=== PATIENT | male | born 1985 | race Two or more races ===

== ENCOUNTER 2019-06-05 21:38 | Emergency (ER) | payer OTHER ==
[~2019-06-05] VITALS: Ht 170.2 cm; Wt 72.6 kg
--- NOTE | 2019-06-05 21:50 | NUR ---
ED Nurse Note: PATIENT AMBULATED TO ED C/O WORKPLACE INJURY TO RIGHT THUMB X 2049. PATIENT STATES HE DROPPED AT KNIFE AT WORK AND SLICED HIS THUMB. Pt is AO x 4times, VSS, on room air no distress. TAWNYAD seen Pt at bedside.
[2019-06-05 22:14] VITALS: BP 125/72
[2019-06-05] MEDS ORDERED: Bacitracin Oint UD TOPIC ONE (22:33)
--- NOTE | 2019-06-05 22:33 | NUR ---
ED Nurse Note: Suture the wound by ERMD. Applied with meds and cover with dressing.
--- NOTE | 2019-06-05 22:38 | NUR ---
ER DISCHARGE NOTE: Patient is cleared to be discharged per ERMD, pt is aox4, on room air, with stable vital signs. pt was given dc and prescription instructions, pt was able to verbalize understanding, pt id band removed without complications. pt is able to ambulate with steady gait. pt took all belongings.
[2019-06-05] MEDS ORDERED: Bacitracin Oint 15gm Tube TOPIC ONE (22:45)
[2019-06-05 22:50] VITALS: BP 130/78
--- NOTE | 2019-06-06 01:10 | Emergency Room Report ---
History of Present Illness General Chief Complaint: Laceration Source: Patient Present Illness HPI 34-year-old male presents ED for evaluation. Status post laceration to right thumb. States that he dropped a knife at work and cut his right thumb. Denies any other injuries. Tetanus is up-to-date. Denies any pain. No other aggravating relieving factors. Denies any other associated symptoms Allergies: Coded Allergies: No Known Allergies (Unverified , 06/05/19) Patient History Past Medical History: none Past Surgical History: none Pertinent Family History: none Social History: Denies: smoking, alcohol use, drug use Immunizations: UTD Reviewed Nursing Documentation: PMH: Agreed; PSxH: Agreed Nursing Documentation-PMH Past Medical History: No Stated History Review of Systems All Other Systems: negative except mentioned in HPI Physical Exam Vital Signs Date Time Temp Pulse Resp B/P (MAP) Pulse Ox O2 Delivery O2 Flow Rate FiO2 06/05/19 21:41 98.1 88 14 114/72 (86) 94 Room Air Sp02 EP Interpretation: reviewed, normal General Appearance: no apparent distress, alert, GCS 15, non-toxic Head: normocephalic Eyes: bilateral eye normal inspection, bilateral eye PERRL ENT: normal ENT inspection Neck: normal inspection Respiratory: normal inspection Cardiovascular #1: normal inspection Gastrointestinal: normal inspection Rectal: deferred Genitourinary: no CVA tenderness Musculoskeletal: normal inspection Neurologic: alert, oriented x3, responsive, motor strength/tone normal, sensory intact, speech normal Psychiatric: normal inspection Skin: laceration - 2cm laceration to R thumb. no tendon or muscle involvement Lymphatic: normal inspection Procedures Laceration/Wound Repair Laceration/Wound Repair : Consent: Verbal Wound Location: upper extremity - R thumb Wound's Depth, Shape: linear Wound Explored: clean Betadine Prep?: Yes Anesthesia: 1% Lidocaine Wound Debrided: minimal Wound Repaired With: sutures Suture Size/Type: 5:0, proline Layer Closure?: No Sterile Dressing Applied?: Yes Splint Applied?: No Sling Applied?: No Patient Tolerated: Well Complications: None Medical Decision Making Diagnostic Impression: Primary Impression: Laceration ER Course Hospital Course 34-year-old M presents to ED s/p laceration R thumb Clinical course Patient placed on stretcher. After initial history and physical, wound irrigated. Anesthesia provided with lidocaine. Laceration repaired w/o complication. Dressing/bacitracin applied. Diagnosis - laceration Stable and discharged to home. wound Care instructions given. Followup with PMD in 7-10 days for suture removal. Return to ED if any signs of infection develop Last Vital Signs Date Time Temp Pulse Resp B/P (MAP) Pulse Ox O2 Delivery O2 Flow Rate FiO2 06/05/19 22:50 98.1 74 18 130/78 98 Room Air Status: improved Disposition: HOME, SELF-CARE Condition: Stable Scripts No Active Prescriptions or Reported Meds Referrals: NOT CHOSEN IPA/,REFERRING (PCP) [facility] Forms: Return to Work Return to Work Date: Jun 07, 2019 Work Restrictions: No Heavy Lifting Patient Instructions: Laceration Care, Adult Additional Instructions: have sutures removed in 7-10 days. return to ED if any signs of infection develop Brandon Alfaro MD Jun 06, 2019 01:10
== END 2019-06-05 22:36 | disposition home or self-care (01) ==
LOC: EMR 21:56
DX: S61.011A Laceration without foreign body of right thumb without damage to nail, initial encounter (principal); W26.0XXA Contact with knife, initial encounter; Y93.9 Activity, unspecified; Y92.9 Unspecified place or not applicable; Y99.0 Civilian activity done for income or pay
CPT/HCPCS: 99282